=== PATIENT | male | born 1965 ===

== ENCOUNTER 2020-07-15 09:46 | Outpatient (CLI) | payer MEDICARE, MEDICAID | END 2020-07-15 09:47 | disposition home or self-care (01) | LOC: BICULT 09:46 | PROVIDERS: ATTEND Internal Medicine Gastroenterology | DX: Z12.11 Encounter for screening for malignant neoplasm of colon (principal); K76.89 Other specified diseases of liver; E80.4 Gilbert syndrome; Z90.89 Acquired absence of other organs | CPT/HCPCS: 76705 ==